=== PATIENT | male | born 1960 | race Caucasian/White ===

== ENCOUNTER 2016-10-14 20:05 | Emergency (ER) | payer OTHER ==
[~2016-10-14] VITALS: Ht 188 cm; Wt 81.6 kg
[~2016-10-14 20:05] MED LIST: COLACE100 MG PO; COUMADIN 7.5 M7.5 MG PO; MUCINEX D 12001 TER PO; MULTIVITAMIN1 TAB PO; PERCOCET 325 MG1 TA2 PO
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
--- NOTE | 2016-10-14 21:16 | RADIOLOGY REPORT ---
EXAMINATION: XR WRIST, RIGHT CLINICAL INFORMATION: Right wrist pain. COMPARISON: None. TECHNIQUE: AP, lateral, and oblique views of the right wrist. FINDINGS: Multiple views of the right wrist demonstrate a well-corticated fragment along the distal ulna, most likely insurance verification representative of a remote fracture of the ulnar styloid process. Of note, there are subchondral lucencies involving the distal ulna with cortical indistinctness and questionable periosteal reaction. No acute fracture or dislocation of the right wrist is identified. There is a moderate amount of soft tissue swelling along the ulnar and ventral aspect of the right wrist. IMPRESSION: A moderate amount of soft tissue swelling along the ulnar and ventral aspects of the right wrist with cortical lucency and cortical indistinctness involving the distal ulna with questionable associated periosteal reaction. This may be chronic in nature given posterolateral deformity of the distal right ulna although an acute underlying infectious process with associated cortical involvement of the distal ulna cannot be entirely excluded. Additionally, an organizing fluid collection or hematoma within this region cannot be excluded. Consider correlation with contrast-enhanced CT of the right wrist. Posttraumatic deformity involving the distal ulna.
[2016-10-14] MEDS ORDERED: VITAMIN D1000 UNIT PO (21:42)
[2016-10-14] MEDS ORDERED: MULTIVITAMINS1 EAC8 PO (21:42)
[2016-10-14 21:56] LABS: ABSOLUTE BASOPHIL COUNT 0 /CUMM (0.0-0.2); ABSOLUTE EOSINOPHIL COUNT 0.3 /CUMM (0.0-0.7); ABSOLUTE GRANULOCYTE CT 6.5 /CUMM (1.4-6.5); ABSOLUTE LYMPH COUNT 1.3 /CUMM (1.2-3.4); ABSOLUTE MONOCYTE COUNT 0.7 /CUMM (0.10-0.60); BASOPHIL % 0.4 % (0.0-2.0); EOSINOPHIL % 3.2 % (0-5); GRANULOCYTE % 73.4 % (42.2-75.2); HEMATOCRIT 39.8 % (42-52); MEAN CORPUSCULAR HGB 32.7 PG (27.0-31.0); MEAN CORPUSCULAR HGB CONC 33.9 G/DL (33.0-37.0); MEAN CORPUSCULAR VOLUME 96.4 FL (80.0-94.0); MEAN PLATELET VOLUME 7.3 FL (7.4-10.4); PLATELET COUNT 266 /CUMM (130-400); RED BLOOD CELL CT 4.13 /CUMM (4.70-6.10); WHITE BLOOD CELL COUNT 8.8 /CUMM (4.8-10.8)
[2016-10-14 22:46] VITALS: BP 126/81
--- NOTE | 2016-10-14 23:03 | CT SCAN REPORT ---
EXAMINATION: CT UPPER EXTREMITY WITH CONTRAST, RIGHT CLINICAL INFORMATION: Right wrist pain and swelling. Rule out abscess. COMPARISON: Radiographs from earlier today TECHNIQUE: Multidetector volumetric imaging of the right wrist was performed after administration of 94 mL of Optiray 320 intravenous contrast. Coronal and sagittal reformatted images were obtained of the technologist workstation. DLP: 741 mGy-cm FINDINGS: There appears to be a joint effusion at the wrist, with fluid most prominently seen along the dorsal aspect. Additional pocket of fluid noted along the extensor carpi ulnaris, series 3 image 242. Small amount of fluid seen within the carpal tunnel and adjacent flexor tendons. There is no superficial fluid collection identified. The vascular structures prominently enhance. Chronic ulnar styloid fracture which is nonunited. Prominent cysts at the distal ulna. The bones are osteopenic. There is no acute fracture. Narrowing of the radiocarpal joint space. Widening of the scapholunate interval, measuring 0.6 cm. Prominent joint space narrowing at the second and third metacarpophalangeal joints with subchondral cyst formation. No acute erosive osseous changes are noted. IMPRESSION: 1. No superficial fluid collection. 2. Wrist joint effusion with multiple areas of fluid around both flexor and extensor tendons suggestive of tenosynovitis. 3. Multiple degenerative changes including joint space narrowing of the radiocarpal joint and widening of the scapholunate interval.
[2016-10-14] MEDS ORDERED: IBUPROFEN800 M1 PO (23:28)
[2016-10-14] MEDS ORDERED: PERCOCET 5-3251 EACH PO (23:28)
== END 2016-10-15 ==
LOC: ERH 20:05
PROVIDERS: Physician Assistant
DX: M65.9 Synovitis and tenosynovitis, unspecified (principal); M25.531 Pain in right wrist; R20.0 Anesthesia of skin; M25.431 Effusion, right wrist
CPT/HCPCS: 73110-RT; 96374; 96375; J1885